=== PATIENT | male | born 1985 | race Caucasian/White ===

== ENCOUNTER 2016-07-08 16:36 | Emergency (ER) | payer OTHER ==
[~2016-07-08] VITALS: Ht 182.9 cm; Wt 86.2 kg
[2016-07-08 16:38] VITALS: BP 143/91
[2016-07-08] MEDS ORDERED: ONDANSETRON 4 MG ORAL DISINTEGRATING TAB (S0181) PO ONE (18:00)
[2016-07-08] MEDS ORDERED: ZOFR4TAB3 PO (18:12)
== END 2016-07-08 18:16 | disposition home or self-care (01) ==
LOC: M ED 17:47
DX: A08.4 Viral intestinal infection, unspecified (principal)

== ENCOUNTER 2018-08-25 09:43 | Emergency (ER) | payer OTHER ==
[~2018-08-25] VITALS: Ht 180.3 cm; Wt 93.3 kg
[~2018-08-25 09:43] MED LIST: ZOFR4TAB14 PO
[2018-08-25] MEDS ORDERED: NS 1,000 ML IV ONE (10:45)
[2018-08-25] MEDS: GASTROGRAFIN SOLUTION 30ML PO SCH ×2 (11:30→12:07)
[2018-08-25 11:32] LABS: BASO # 0.1 10^3/uL (0.0-0.2); BASO % 1.5 % (0.0-1.0); EOS # 0.3 10^3/uL (0.0-0.50); EOS % 7.3 % (0.0-3.0); HEMATOCRIT 42.7 % (42.0-52.0); HEMOGLOBIN 14.7 g/dl (13.5-17.5); LYMPH # 1.4 10^3/uL (1.5-4.5); LYMPH % 34.6 % (24.0-44.0); MEAN CORPUSCULAR HEMOGLOBIN 29.2 pg (27.0-33.0); MEAN CORPUSCULAR HGB CONC 34.4 g/dl (32.0-36.5); MEAN CORPUSCULAR VOLUME 84.7 fl (80.0-96.0); MONO # 0.3 10^3/uL (0.0-0.8); MONO % 7.3 % (0.0-5.0); NEUTROPHILS % 49.3 % (36.0-66.0); PLATELET COUNT, AUTOMATED 209 10^3/uL (150-450); RED BLOOD COUNT 5.04 10^6/uL (4.30-6.10)
[2018-08-25 12:11] LABS: ALBUMIN 4.4 GM/DL (3.2-5.2); ALT/SGPT 62 U/L (12-78); BILIRUBIN,DIRECT 0.2 MG/DL (0.0-0.2); BILIRUBIN,TOTAL 1.1 MG/DL (0.2-1.0); BLOOD UREA NITROGEN 13 MG/DL (7-18); CARBON DIOXIDE LEVEL 29 MEQ/L (21-32); CHLORIDE LEVEL 105 MEQ/L (98-107); CREATININE FOR GFR 1.06 MG/DL (0.70-1.30); GLOMERULAR FILTRATION RATE > 60.0 (>60); GLUCOSE, FASTING 84 MG/DL (70-100); LIPASE 72 U/L (73-393); POTASSIUM SERUM 4.5 MEQ/L (3.5-5.1); SODIUM LEVEL 138 MEQ/L (136-145); TOTAL PROTEIN 7.9 GM/DL (6.4-8.2)
[2018-08-25] MEDS ORDERED: ISOVUE-370 76% 100ML VIAL (Q9967) As Ordered ONE (12:21)
--- NOTE | 2018-08-25 13:40 | REP ---
Clinical: Abdominal pain with history of Crohn disease and anal fissures. Technique: Axial contrast enhanced images from the lung bases to the pubic symphysis using oral (per protocol) and 100 ml Isovue 370 intravenous contrast material with coronal and sagittal re-formations. Comparison: None. Findings: The enteric system is without obstruction or obvious acute inflammatory process. Mild mucosal thickening to the distal/terminal ileum without luminal narrowing or perienteric stranding may represent chronic changes related to given history of Crohn's. The cecum and appendix appear normal. Sigmoid diverticula noted without acute diverticulitis. Liver, spleen, pancreas, gallbladder, bilateral adrenal glands and kidneys are normal. Pelvis demonstrates normal bladder and age appropriate prostate/seminal vesicles. No ascites. No free air. No adenopathy. Abdominal aorta and vasculature without aneurysm or dissection. Musculoskeletal structures are intact. Lung bases are clear. Impression: 1. Likely chronic mild mucosal thickening of the distal/terminal ileum consistent with the given history of Crohn disease. 2. Scattered sigmoid diverticula without acute diverticulitis. 3. No obvious acute abdominopelvic pathology appreciated Electronically Signed by Eliseo Cerda MD 08/25/2018 01:32 P
[2018-08-25 14:07] VITALS: BP 142/85
[2018-08-25] MEDS ORDERED: MESA800T8 PO (14:08)
== END 2018-08-25 14:24 | disposition home or self-care (01) ==
LOC: M ED 09:43
DX: K50.911 Crohn's disease, unspecified, with rectal bleeding (principal); K57.30 Diverticulosis of large intestine without perforation or abscess without bleeding; K92.1 Melena; K21.9 Gastro-esophageal reflux disease without esophagitis; K60.2 Anal fissure, unspecified; Z87.891 Personal history of nicotine dependence
CPT/HCPCS: 74177; 80048; 80076; 81001; 83690; 85025; 86850; 86900; 86901; 87086; 99284; Q9963; Q9967

== ENCOUNTER → 2018-08-26 | Outpatient (REF) | payer OTHER ==
[~2018-08-26] MED LIST changes: +MESA800T8 PO
== END ==
LOC: M LAB REF 12:48
PROVIDERS: ATTEND Physician Assistant
DX: R19.7 Diarrhea, unspecified (principal); K92.1 Melena

== ENCOUNTER 2018-11-02 11:43 | Day surgery (SDC) | payer OTHER ==
[~2018-11-02] VITALS: Ht 175.3 cm; Wt 91.2 kg
[~2018-11-02 11:43] MED LIST changes: +NS 1,000 ML IV ONE; +OMEP40CA97 PO; +PRED20TA PO
[2018-11-02] MEDS ORDERED: propofoL 200 MG/20 ML VIAL As Ordered ONE ×2 (13:06→14:21)
[2018-11-02] MEDS ORDERED: LIDOCAINE 2% INJ 100 MG/5 ML SDV (FOR ANES.) As Ordered ONE (13:06)
[2018-11-02] MEDS ORDERED: fentaNYL 100 MCG/2 ML INJECTION (J3010) As Ordered ONE (13:38)
--- NOTE | 2018-11-02 13:59 | ROOR ---
Patient Name: Kadeem Collins Procedure Date: 11/02/2018 1:34 PM Date of : 1985 Age: 33 Room: [facility] Gender: Male Note Status: Finalized Procedure: Upper Endoscopy + Biopsies Indications: Epigastric abdominal pain, Heartburn, Diarrhea Providers: Miguelangel Bose MD Referring MD: MILVIA STEEL MD Requesting Provider: Medicines: Monitored Anesthesia Care Complications: No immediate complications. Procedure: Pre-Anesthesia Assessment: - The heart rate, respiratory rate, oxygen saturations, blood pressure, adequacy of pulmonary ventilation, and response to care were monitored throughout the procedure. The Endoscope was introduced through the mouth, and advanced to the second part of duodenum. The upper GI endoscopy was accomplished without difficulty. The patient tolerated the procedure well. Findings: Mucosal changes including ringed esophagus and feline appearance were found in the entire esophagus. Biopsies were obtained from the proximal and distal esophagus with cold forceps for histology of suspected eosinophilic esophagitis. A small hiatal hernia was present. The Z-line was irregular and was found 40 cm from the incisors. Multiple biopsies were obtained with cold forceps for evaluation to rule out Friend's Esophagus randomly at the gastroesophageal junction. No other significant abnormalities were identified in a careful examination of the stomach. The exam of the duodenum was otherwise normal. Biopsies for histology were taken with a cold forceps in the first portion of the duodenum for evaluation of celiac disease. The exam was otherwise without abnormality. There is no endoscopic evidence of mucosal abnormalities in the first portion of the duodenum. Impression: - Esophageal mucosal changes suspicious for eosinophilic esophagitis. Biopsied. - Small hiatal hernia. - Z-line irregular, 40 cm from the incisors. - The examination was otherwise normal. - Multiple biopsies were obtained at the gastroesophageal junction. - Biopsies were taken with a cold forceps for evaluation of celiac disease. - The examination was otherwise normal. Recommendation: - Patient has a contact number available for emergencies. The signs and symptoms of potential delayed complications were discussed with the patient. Return to normal activities tomorrow. Written discharge instructions were provided to the patient. - Resume previous diet. - Follow an antireflux regimen. - Continue present medications. - Await pathology results. - Telephone GI clinic for pathology results in 1 week. - Return to referring physician. - The findings and recommendations were discussed with the patient's family. Miguelangel Bose MD Miguelangel Bose MD 11/02/2018 1:58:55 PM Electronically signed by Miguelangel Bose MD Number of Addenda: 0 Note Initiated On: 11/02/2018 1:34 PM Estimated Blood Loss: Estimated blood loss: none.
--- NOTE | 2018-11-02 14:25 | ROOR ---
Patient Name: Kadeem Collins Procedure Date: 11/02/2018 1:33 PM Date of : 1985 Age: 33 Room: [facility] Gender: Male Note Status: Finalized Procedure: Total Colonoscopy to Cecum + ileoscopy + Bx Indications: Lower abdominal pain, Clinically significant diarrhea of unexplained origin, Rectal bleeding, Abnormal CT of the GI tract Providers: Miguelangel Bose MD Referring MD: MILVIA STEEL MD Requesting Provider: Medicines: Monitored Anesthesia Care Complications: No immediate complications. Procedure: Pre-Anesthesia Assessment: - The heart rate, respiratory rate, oxygen saturations, blood pressure, adequacy of pulmonary ventilation, and response to care were monitored throughout the procedure. The Colonoscope was introduced through the anus and advanced to the terminal ileum. The colonoscopy was performed without difficulty. The patient tolerated the procedure well. The quality of the bowel preparation was excellent. Findings: The perianal and digital rectal examinations were normal. Non-bleeding internal hemorrhoids were found during retroflexion. The hemorrhoids were small and Grade I (internal hemorrhoids that do not prolapse). An area of mildly congested mucosa was found in the rectum. No other significant abnormalities were identified in a careful examination of the remainder of the colon. A single (solitary) ulcer was found at the ileocecal valve. No bleeding was present. No stigmata of recent bleeding were seen. Biopsies were taken with a cold forceps for histology. The terminal ileum appeared normal. The exam was otherwise without abnormality. Impression: - Non-bleeding internal hemorrhoids. - Congested mucosa in the rectum. - A single (solitary) ulcer at the ileocecal valve. Biopsied. - The examined portion of the ileum was normal. - The examination was otherwise normal. - The exam was otherwise normal to the cecum. Recommendation: - Patient has a contact number available for emergencies. The signs and symptoms of potential delayed complications were discussed with the patient. Return to normal activities tomorrow. Written discharge instructions were provided to the patient. - High fiber diet. - Discharge patient to home. - Continue present medications. - Await pathology results. - Use Pentasa 1 gram PO QID. - Return to GI office in 2 months. - Telephone GI clinic for pathology results in 1 week. - Repeat colonoscopy in 5 years for surveillance. - The findings and recommendations were discussed with the patient's family. Miguelangel Bose MD Miguelangel Bose MD 11/02/2018 2:24:37 PM Electronically signed by Miguelangel Bose MD Number of Addenda: 0 Note Initiated On: 11/02/2018 1:33 PM Estimated Blood Loss: Estimated blood loss: none.
[2018-11-02 14:55] VITALS: BP 153/81
== END 2018-11-02 15:10 | disposition home or self-care (01) ==
LOC: M OPP 11:43
PROVIDERS: ATTEND Internal Medicine Gastroenterology
DX: K64.0 First degree hemorrhoids (principal); K62.89 Other specified diseases of anus and rectum; K63.3 Ulcer of intestine; R10.30 Lower abdominal pain, unspecified; R19.7 Diarrhea, unspecified; K62.5 Hemorrhage of anus and rectum; R93.3 Abnormal findings on diagnostic imaging of other parts of digestive tract; K22.8 Other specified diseases of esophagus; K44.9 Diaphragmatic hernia without obstruction or gangrene; R10.13 Epigastric pain; F17.210 Nicotine dependence, cigarettes, uncomplicated; Z79.899 Other long term (current) drug therapy; Z88.3 Allergy status to other anti-infective agents
CPT/HCPCS: 43239; 45380; 88305; J3010